=== PATIENT | male | born 1985 | race Caucasian/White ===

== ENCOUNTER 2022-05-24 23:59 | Emergency (ER) | payer OTHER ==
[2022-05-25 01:25] LABS: HEMOGLOBIN 15.5 gm/dl (14.0-17.5); RED BLOOD COUNT 4.97 M/UL (4.20-5.50); WHITE BLOOD COUNT 11.3 K/UL (4.5-11.0)
[2022-05-25 01:55] LABS: BUN/CREATININE RATIO 10 (0-10)
== END 2022-05-25 06:05 | disposition home or self-care (01) ==
LOC: ER1 23:59
PROVIDERS: Family Medicine
DX: N50.811 Right testicular pain (principal); R10.31 Right lower quadrant pain; J44.9 Chronic obstructive pulmonary disease, unspecified; F17.200 Nicotine dependence, unspecified, uncomplicated; Z90.89 Acquired absence of other organs
CPT/HCPCS: 76870; 80053; 81001; 83690; 85025; 96374; 99284; J1885